=== PATIENT | male | born 2000 | race Caucasian/White ===

== ENCOUNTER 2023-04-24 21:04 | Emergency (ER) | payer OTHER, SELFPAY ==
[2023-04-24 21:14] VITALS: BP 137/86; PULSE 106; RESP 16; TEMP 36.4; O2SAT 97; BMI 34.0
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
[2023-04-24] MEDS: Acetaminophen 325 MG TABLET 975 MG PO (22:54)
[2023-04-24] MEDS: Ibuprofen 400 MG TABLET PO (22:54)
[2023-04-24] MEDS: Benzonatate 100 MG CAPSULE PO (22:54)
--- NOTE | 2023-04-24 22:58 | PC.NURSE ---
pt medicated per MAR
[2023-04-24 23:05] LABS: Influenza A PCR NEGATIVE (Negative); Influenza B PCR NEGATIVE (Negative); Resp Syncy Virus RNA Qual PCR NEGATIVE (Negative); SARS COV2 PCR INHOUSE NEGATIVE (Negative)
== END 2023-04-24 23:34 | disposition home or self-care (01) ==
PROVIDERS: Emergency Provider Student in an Organized Health Care Education/Training Program
DX: J06.9 Acute upper respiratory infection, unspecified (principal); B34.9 Viral infection, unspecified; R06.02 Shortness of breath; Z20.822 Contact with and (suspected) exposure to COVID-19; Z20.828 Contact with and (suspected) exposure to other viral communicable diseases
CPT/HCPCS: 0241U; 99283

== ENCOUNTER 2023-05-23 19:49 | Emergency (ER) | payer OTHER, SELFPAY ==
[2023-05-23 20:18] VITALS: BP 115/68; PULSE 95; RESP 16; TEMP 37.2; O2SAT 96; BMI 35.9
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
== END 2023-05-23 20:30 | disposition home or self-care (01) ==
LOC: HO.ED 20:29
PROVIDERS: Emergency Provider Internal Medicine
DX: S16.1XXA Strain of muscle, fascia and tendon at neck level, initial encounter (principal); M54.50 Low back pain, unspecified; V43.52XA Car driver injured in collision with other type car in traffic accident, initial encounter; Y93.9 Activity, unspecified; Y92.410 Unspecified street and highway as the place of occurrence of the external cause; Y99.9 Unspecified external cause status
CPT/HCPCS: 99282; 99283

== ENCOUNTER 2024-08-20 19:36 | Emergency (ER) | payer OTHER, SELFPAY ==
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
[2024-08-20 19:44] VITALS: BP 119/71; BP 140/99; PULSE 98; RESP 18; TEMP 37; O2SAT 98; O2SAT 99; BMI 30.2
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
[2024-08-21 00:29] VITALS: BP 126/58; PULSE 73; RESP 18; TEMP 36.5; O2SAT 97
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
[2024-08-21 02:09] LABS: MANUAL DIFF FLAG NO
[2024-08-21 02:12] LABS: Basophils Percent Auto 0.6 % (0-2); Eosinophils Absolute Auto 0.1 X10*3/uL (0.0-0.4); Hematocrit 43.3 % (42.0-52.0); Hemoglobin 14.7 g/dl (14.0-18.0); Imm Gran Abs Auto 0.02 X10*3/uL (0.00-0.03); Imm Gran Pct Auto 0.3 % (0.0-0.4); Lymphocytes Absolute Auto 2.4 X10*3/uL (1.2-4.9); Mean Corpuscular HGB Conc 33.9 g/dl (31.0-36.0); Mean Corpuscular Hemoglobin 29.8 pg (27.0-33.0); Mean Corpuscular Volume 87.8 fL (80.0-98.0); Mean Platelet Volume 10.8 fL (9.4-12.4); Monocytes Absolute Auto 0.7 X10*3/uL (0.1-1.2); Monocytes Percent Auto 10.1 % (2-11); Platelet Count 224 X10*3/uL (160-400); Red Blood Count 4.93 X10*6/uL (4.60-5.80); Red Cell Distribution Width 13.7 % (11.0-16.0); White Blood Count 7.2 X10*3/uL (4.8-10.8)
[2024-08-21] MEDS: Ketorolac Tromethamine 15 MG/ML VIAL IVPUSH (02:16)
[2024-08-21 02:29] LABS: Alanine Aminotransferase 13 U/L (0-40); Albumin Level 4.3 g/dL (3.5-5.0); Alkaline Phosphatase 79 U/L (39-117); Anion Gap 18 (12-20); Aspartate Amino Transferase 22 U/L (5-37); Bilirubin Direct 0.2 mg/dL (0.0-0.5); Bilirubin Total 0.5 mg/dL (0.0-1.0); Blood Urea Nitrogen 8 mg/dL (9-16); Calcium 9.9 mg/dL (8.4-10.2); Carbon Dioxide 24 mmol/L (22-29); Chloride 104 mmol/L (96-108); Creatinine Clr Calc Pharmacy 133.7; Estimated Glomerular Filt Rate > 60; Glucose Random 90 mg/dL (60-115); Lipase 13 U/L (8-78); Potassium 4.2 mmol/L (3.3-5.1); Sodium 142 mmol/L (135-145); Total Protein 7.3 g/dL (6.5-8.0)
--- NOTE | 2024-08-21 02:44 | PC.NURSE ---
pt in rad at this time
[2024-08-21] MEDS: iohexoL 350 MG/ML 100 ML INFUS..BTL 85 ML IV (02:58)
[2024-08-21 04:00] VITALS: BP 120/57; PULSE 68; RESP 16; TEMP 36.4; O2SAT 99
[2024-08-21 06:00] VITALS: BP 112/69; PULSE 76; RESP 16; TEMP 36.6; O2SAT 100
[2024-08-21 06:16] VITALS: BP 112/69; PULSE 76; RESP 16; TEMP 36.6; O2SAT 100
== END 2024-08-21 06:18 | disposition home or self-care (01) ==
PROVIDERS: Emergency Provider Emergency Medicine Emergency Medical Services
DX: T14.8XXA Other injury of unspecified body region, initial encounter (principal); V40.0XXA Car driver injured in collision with pedestrian or animal in nontraffic accident, initial encounter; M25.561 Pain in right knee; R10.13 Epigastric pain; Y93.89 Activity, other specified; Y92.414 Local residential or business street as the place of occurrence of the external cause; Y99.9 Unspecified external cause status
CPT/HCPCS: 36415; 73564; 74177; 76705; 80048; 80076; 83690; 85025; 96374; 99284; J1885; Q9967